=== PATIENT | female | born 1935 | race Caucasian/White ===

== ENCOUNTER → 2017-09-07 | Outpatient (CLI) | payer MEDICARE ==
[~2017-09-07] MED LIST: ASPI-555 PO; ATOR20TA65 PO; CALC600T12 PO; CARV6.25 PO; CHOL100044 PO; CLOP75TA32 PO; FURO20TA4 PO; LISI-617 PO; NITR0.4T SL
== END | disposition home or self-care (01) ==
LOC: SHCH 10:40
PROVIDERS: ATTEND Internal Medicine Cardiovascular Disease
DX: I25.10 Atherosclerotic heart disease of native coronary artery without angina pectoris (principal)
CPT/HCPCS: 93306

== ENCOUNTER → 2017-10-23 | Outpatient (CLI) | payer MEDICARE | END | disposition home or self-care (01) | LOC: RAH 14:29 | PROVIDERS: ATTEND Internal Medicine | DX: I11.0 Hypertensive heart disease with heart failure (principal); I50.9 Heart failure, unspecified; I48.91 Unspecified atrial fibrillation; I25.10 Atherosclerotic heart disease of native coronary artery without angina pectoris | CPT/HCPCS: 71046 ==

== ENCOUNTER → 2017-11-01 | Outpatient (CLI) | payer MEDICARE | END | disposition home or self-care (01) | LOC: SHCH 09:00 | PROVIDERS: ATTEND Internal Medicine Cardiovascular Disease | DX: I71.4 Abdominal aortic aneurysm, without rupture (principal); I70.90 Unspecified atherosclerosis | CPT/HCPCS: 93978 ==

== ENCOUNTER 2017-12-25 07:31 | Day surgery (SDC) | payer MEDICARE ==
[2017-12-21 13:10] VITALS: BP 165/95
[2017-12-21 13:35] LABS: BASOPHILS % (AUTO) 0.5 % (0.0-5.0); EOSINOPHILS % (AUTO) 1.8 % (0.0-8.0); LYMPHOCYTES % (AUTO) 24.6 % (21.0-51.0); MEAN CORPUSCULAR HEMOGLOBIN 28.5 pg (27.0-33.0); MEAN CORPUSCULAR HGB CONC 32.9 g/dL (32.0-36.0); MEAN CORPUSCULAR VOLUME 86.6 fL (79-99); MONOCYTES % (AUTO) 6.1 % (3.0-13.0); PLATELET COUNT (AUTO) 224 K/uL (130-400); RED BLOOD CELL COUNT(AUTO) 3.81 MIL/uL (4.00-5.50); RED CELL DISTRIBUTION WIDTH 14.3 % (11.0-15.5); WHITE BLOOD COUNT (AUTO) 4.2 K/uL (4.8-10.8)
[2017-12-21 13:48] LABS: CREATININE 0.8 mg/dL (0.5-1.5); POTASSIUM 4.4 mmol/L (3.5-5.1)
[2017-12-21 13:50] LABS: INR 0.99 (0.85-1.15); PARTIAL THROMBOPLASTIN TIME 27.5 SEC (26.3-35.5); PROTHROMBIN TIME 10.4 SEC (9.6-11.6)
[2017-12-21 14:18] LABS: APPEARANCE,URINE Clear (CLEAR); BILIRUBIN,URINE Negative (NEGATIVE); COLOR,URINE Yellow (YELLOW); GLUCOSE, URINE (UA) Negative (NEGATIVE); KETONES,URINE Negative (NEGATIVE); LEUKOCYTE ESTERASE ,URINE Large (NEGATIVE); NITRATE,URINE Negative (NEGATIVE); OCCULT BLOOD,URINE Trace (NEGATIVE); PROTEIN,URINE Negative (NEGATIVE)
[2017-12-21 14:37] LABS: RBC,URINE 0-1 /HPF (0-1)
[2017-12-21 14:38] LABS: BACTERIA,URINE Few /HPF (None Seen); RENAL EPITHELIAL CELLS,URINE Few /HPF (None Seen); TRANSITIONAL EPI CELLS,URINE Few /HPF (None Seen); WBC,URINE 26-50 /HPF (0-1)
[~2017-12-25] VITALS: Ht 160 cm; Wt 49.6 kg
[2017-12-25] VITALS (12 sets, daily range): BP systolic 123–165; BP diastolic 54–82
[~2017-12-25 07:31] MED LIST changes: -ASPI-555 PO
[2017-12-25] MEDS ORDERED: SODIUM CHLORIDE 0.9% 1000ML 1,000 ML IV SCH ×2 (08:00→12:35)
[2017-12-25] MEDS ORDERED: NITROGLYCERIN 5 MG/ML 10 ML VIAL IV ONE (10:38)
[2017-12-25] MEDS ORDERED: SODIUM BICARB 50MEQ 50ML VIAL ONE (10:38)
[2017-12-25] MEDS ORDERED: LIDOCAINE HCL 2% 20ML ONE (10:38)
[2017-12-25] MEDS ORDERED: ISOVUE-300 100 ML VIAL IV ONE ×2 (10:38→12:17)
[2017-12-25] MEDS ORDERED: HEPARIN SODIUM 1000UNIT/ML 10ML VIAL ONE (10:39)
[2017-12-25] MEDS ORDERED: MEPERIDINE-PF 25 MG/ML SYG ONE (11:32)
[2017-12-25] MEDS ORDERED: MIDAZOLAM HCL 1 MG/ML 2ML VIAL ONE (11:32)
[2017-12-25] MEDS ORDERED: HYDRALAZINE HCL 20 MG/ML VIAL ONE (11:39)
[2017-12-25] MEDS ORDERED: PROTAMINE SULFATE 10 MG/ML 25ML VIAL IV ONE (12:42)
[2017-12-25] MEDS ORDERED: ASPIRIN 325MG EC TAB 325 MG TABLET.DR PO ONE (12:42)
[2017-12-25] MEDS ORDERED: CLOPIDOGREL BISULFATE 75 MG TAB ONE (12:42)
[2017-12-25] MEDS ORDERED: ONDANSETRON HCL 4 MG/2 ML VIAL IVP PRN (12:45)
[2017-12-25] MEDS ORDERED: ACETAMINOPHEN-CODEINE 300/30MG TAB PO PRN ×2 (12:45)
[2017-12-25] MEDS ORDERED: ASPI-555 PO (12:46)
== END 2017-12-25 19:15 | disposition home or self-care (01) ==
LOC: DAH 07:31
PROVIDERS: ATTEND Internal Medicine Cardiovascular Disease
DX: K55.059 Acute (reversible) ischemia of intestine, part and extent unspecified (principal); I73.9 Peripheral vascular disease, unspecified; I25.5 Ischemic cardiomyopathy; I25.10 Atherosclerotic heart disease of native coronary artery without angina pectoris; I44.7 Left bundle-branch block, unspecified; I49.5 Sick sinus syndrome; E78.5 Hyperlipidemia, unspecified; Z79.899 Other long term (current) drug therapy; Z79.82 Long term (current) use of aspirin; Z95.0 Presence of cardiac pacemaker; Z95.5 Presence of coronary angioplasty implant and graft
CPT/HCPCS: 36245 ×3; 36415; 37236; 37237; 71045; 75726 ×3; 80048; 81001; 85025; 85347; 85610; 85730; 93005; A4606; C1725 ×2; C1760; C1769 ×2; C1876 ×3; C1887; C1894; J0360; J1644; J2175; J2250; J2405; J2720; J3490 ×3; J7030; Q9967 ×2; 99156; 99157

== ENCOUNTER 2018-08-21 05:47 | Day surgery (SDC) | payer MEDICARE ==
[2018-08-19 13:42] VITALS: BP 136/74
[2018-08-19 13:50] LABS: BASOPHILS % (AUTO) 0.5 % (0.0-5.0); EOSINOPHILS % (AUTO) 1.5 % (0.0-8.0); HEMATOCRIT 33.4 % (36-48); LYMPHOCYTES % (AUTO) 21.6 % (21.0-51.0); MEAN CORPUSCULAR HEMOGLOBIN 28.9 pg (27.0-33.0); MEAN CORPUSCULAR HGB CONC 32.7 g/dL (32.0-36.0); MEAN CORPUSCULAR VOLUME 88.4 fL (79-99); MONOCYTES % (AUTO) 5.6 % (3.0-13.0); NEUTROPHILS % (AUTO) 70.8 % (40.0-77.0); PLATELET COUNT (AUTO) 176 K/uL (130-400); RED BLOOD CELL COUNT(AUTO) 3.78 MIL/uL (4.00-5.50); RED CELL DISTRIBUTION WIDTH 14.2 % (11.0-15.5); WHITE BLOOD COUNT (AUTO) 3.4 K/uL (4.8-10.8)
[2018-08-19 14:02] LABS: CREATININE 0.8 mg/dL (0.5-1.5); POTASSIUM 4.1 mmol/L (3.5-5.1)
[2018-08-19 14:09] LABS: INR 0.97 (0.85-1.15); PARTIAL THROMBOPLASTIN TIME 27.5 SEC (26.3-35.5); PROTHROMBIN TIME 10.2 SEC (9.6-11.6)
[~2018-08-21] VITALS: Ht 165.1 cm; Wt 52.2 kg
[2018-08-21] VITALS (9 sets, daily range): BP systolic 122–173; BP diastolic 65–89
[~2018-08-21 05:47] MED LIST changes: +ASPI-555 PO; -CALC600T12 PO; -CHOL100044 PO; +OSCAL PO; +SODIUM CHLORIDE 0.9% 1000ML 1,000 ML IV SCH; +VITAMIN PO
[2018-08-21] MEDS ORDERED: ASPI-555 PO (06:45)
[2018-08-21] MEDS ORDERED: BUPIVACAINE/PF 0.25% 50ML VIAL IJ ONE (11:27)
[2018-08-21] MEDS ORDERED: BUPIVACAINE/PF 0.25% 10ML VIAL IJ ONE (11:27)
[2018-08-21] MEDS ORDERED: CEFAZOLIN SODIUM 1 GM VIAL ONE (11:27)
[2018-08-21] MEDS ORDERED: LIDOCAINE HCL 1% MDV 50ML VIAL ONE (11:27)
--- NOTE | 2018-08-21 11:35 | NUR ---
PROCEDURE PT TAKEN TO ELECTRICAL SYSTEMS DESIGN ENGINEER FOR PROCEDURE, PT AWAKE AND ALERT, FAMILY AT BEDSIDE.
[2018-08-21] MEDS ORDERED: MIDAZOLAM HCL 1 MG/ML 2ML VIAL ONE ×3 (11:51→13:02)
[2018-08-21] MEDS ORDERED: MEPERIDINE-PF 25 MG/ML SYG ONE ×3 (11:51→13:03)
[2018-08-21] MEDS ORDERED: THROMBIN-JMI 5000 UNIT/VIAL TP ONE (12:32)
[2018-08-21] MEDS ORDERED: ACETAMINOPHEN-CODEINE 300/30MG TAB PO PRN ×2 (13:30)
[2018-08-21] MEDS ORDERED: ONDANSETRON HCL 4 MG/2 ML VIAL IV PRN (13:30)
[2018-08-21] MEDS ORDERED: ACETAMINOPHEN 325 MG TAB PO PRN ×2 (13:30)
--- NOTE | 2018-08-21 14:10 | NUR ---
procedure received pt from labor mediator, s/p AICD generator changeout, bulky dressing to left upper chest area dry and intact, ice pack applied on arrival. no bleeding or hematoma noted to site. pt awake and alert but seems drowsy. vs stable on arrival. Dr. Torey Ovalles spoke to patient family.
--- NOTE | 2018-08-21 15:25 | NUR ---
dressing left upper chest dressing noted saturated in blood, dripping blood from incision.manual pressured applied till bleeding stop from incision. pressure dressing changed. incision to left upper chest area with lea. brusing noted to site. pt avinash with some discomforts. new ice packs applied to site.
--- NOTE | 2018-08-21 18:05 | NUR ---
PT DRESSING TO LUE INCISION SITE HAS QUATER SIZE SCANT AMOUNT OF BLOOD. PT INSTRUCTED NOT TO USE LUE ALLOW TO REST, NO HEAVY LIFTING, CONTINUE WITH ICE PACKS TODAY AT HOME. INSTRUCTED IF ACTIVE BLEEDING TO DRESSING OR HEMATOMA TO COME INTO EMERGENCY DEPT. PT STABLE NO DISTRESS. STATES SOME PAIN TO LUE, EDUCATED THAT ARM WILL BY SORE FOR FEW DAYS MUST REST ARM. POST CARE INSTRUCTIONS GIVEN TO PT AND DAUGHTER, BOTH VERBALIZED UNDERSTANDING OF ALL INSTRUCTIONS GIVEN. PT DRESSING WITH ASSISTANCE, PLACED IN A WHEELCHAIR AND DRIVEN HOME BY DAUGHTER.
== END 2018-08-21 18:05 | disposition home or self-care (01) ==
LOC: DAH 05:47
PROVIDERS: ATTEND Internal Medicine Cardiovascular Disease
DX: I49.5 Sick sinus syndrome (principal); I25.10 Atherosclerotic heart disease of native coronary artery without angina pectoris; Z95.1 Presence of aortocoronary bypass graft; Z95.5 Presence of coronary angioplasty implant and graft; I25.5 Ischemic cardiomyopathy; I44.7 Left bundle-branch block, unspecified; E78.5 Hyperlipidemia, unspecified; I65.29 Occlusion and stenosis of unspecified carotid artery; Z82.49 Family history of ischemic heart disease and other diseases of the circulatory system
CPT/HCPCS: 33264; 36415; 80048; 85025; 85610; 85730; 93005; A4606; C1882; J0690; J2175 ×3; J2250 ×3; J3490 ×4; J7030; 99156; 99157

== ENCOUNTER 2018-08-22 13:44 | Emergency (ER) | payer MEDICARE ==
[~2018-08-22 13:44] MED LIST changes: -SODIUM CHLORIDE 0.9% 1000ML 1,000 ML IV SCH
== END 2018-08-22 14:46 | disposition home or self-care (01) ==
LOC: EDH 13:44
DX: T82.897A Other specified complication of cardiac prosthetic devices, implants and grafts, initial encounter (principal); I25.10 Atherosclerotic heart disease of native coronary artery without angina pectoris; Z95.0 Presence of cardiac pacemaker; Z98.890 Other specified postprocedural states; Y83.8 Other surgical procedures as the cause of abnormal reaction of the patient, or of later complication, without mention of misadventure at the time of the procedure; Y92.89 Other specified places as the place of occurrence of the external cause
CPT/HCPCS: 99281

== ENCOUNTER → 2018-08-30 | Outpatient (CLI) | payer MEDICARE | END | disposition home or self-care (01) | LOC: RAH 14:11 | PROVIDERS: ATTEND Internal Medicine Cardiovascular Disease | DX: I82.622 Acute embolism and thrombosis of deep veins of left upper extremity (principal) | CPT/HCPCS: 93971 ==

== ENCOUNTER → 2018-11-20 | Outpatient (CLI) | payer MEDICARE | END | disposition home or self-care (01) | LOC: SHCH 09:42 | PROVIDERS: ATTEND Internal Medicine Cardiovascular Disease | DX: I08.3 Combined rheumatic disorders of mitral, aortic and tricuspid valves (principal); I65.23 Occlusion and stenosis of bilateral carotid arteries | CPT/HCPCS: 93306; 93880 ==

== ENCOUNTER → 2019-12-01 | Outpatient (CLI) | payer MEDICARE | END | disposition home or self-care (01) | LOC: RAH 12:46 | PROVIDERS: ATTEND Internal Medicine | DX: M25.461 Effusion, right knee (principal); I70.0 Atherosclerosis of aorta | CPT/HCPCS: 73562 ==